=== PATIENT | female | born 1995 | race Two or more races ===

== ENCOUNTER 2025-02-03 22:34 | Emergency (ER) | payer BC ==
[~2025-02-03] VITALS: Ht 172.7 cm; Wt 54.4 kg
[2025-02-03] MEDS ORDERED: CEFTRIAXONE SODIUM 1,000 MG VIAL IM ONE (23:00)
[2025-02-03] MEDS ORDERED: LIDOCAINE HCL 1% 10ML VIAL PERCUT ONE (23:00)
[2025-02-03] MEDS ORDERED: LIDOCAINE HCL 1% 10ML VIAL ONE ×2 (23:06→23:14)
[2025-02-03] MEDS ORDERED: CEFTRIAXONE SODIUM 1,000 MG VIAL ONE (23:14)
[2025-02-03] MEDS ORDERED: CEFUROXIME500 MG PO (23:24)
[2025-02-03] MEDS ORDERED: PEPCID AC20 MG PO (23:24)
== END 2025-02-03 23:48 | disposition home or self-care (01) ==
LOC: ER 22:34
DX: S81.811A Laceration without foreign body, right lower leg, initial encounter (principal); W26.8XXA Contact with other sharp object(s), not elsewhere classified, initial encounter; Y93.89 Activity, other specified; Y92.89 Other specified places as the place of occurrence of the external cause; Y99.9 Unspecified external cause status; Z91.013 Allergy to seafood